=== PATIENT | female | born 1955 | race Caucasian/White ===

== ENCOUNTER → 2019-11-29 | Outpatient (CLI) | payer BC ==
[~2019-11-29] VITALS: Ht 160 cm; Wt 59.0 kg
[2019-11-29 09:53] VITALS: BP 120/76
[2019-11-29 12:00] VITALS: BP 136/82
[2019-11-29 12:30] VITALS: BP 135/82
[2019-11-29 13:52] VITALS: BP 123/68
== END | disposition home or self-care (01) ==
LOC: SPEC 08:03
PROVIDERS: ATTEND Physical Medicine & Rehabilitation Pain Medicine
DX: M71.38 Other bursal cyst, other site (principal); M54.16 Radiculopathy, lumbar region; Z98.890 Other specified postprocedural states; Z79.899 Other long term (current) drug therapy